=== PATIENT | male | born 1975 | race Caucasian/White ===

== ENCOUNTER 2019-01-29 16:54 | Emergency (ER) | payer BC ==
[~2019-01-29] VITALS: Ht 185.4 cm; Wt 145.1 kg
[~2019-01-29 16:54] MED LIST: BACTRIM DS 8001 TA1 PO; KEFLEX500 MG PO; MOTRIN800 MG PO; NO DAILY MEDS; VICODIN 5/500 505 MG PO
== END 2019-01-29 17:58 | disposition home or self-care (01) ==
LOC: ED 16:54
DX: T15.02XA Foreign body in cornea, left eye, initial encounter (principal); I10 Essential (primary) hypertension; X58.XXXA Exposure to other specified factors, initial encounter; Y93.89 Activity, other specified; Y92.89 Other specified places as the place of occurrence of the external cause; Y99.8 Other external cause status

== ENCOUNTER 2020-09-26 19:29 | Emergency (ER) | payer OTHER ==
[2020-09-26] MEDS ORDERED: HYDROCODONE-AC1 EAC1 PO (20:16)
== END 2020-09-26 20:16 | disposition home or self-care (01) ==
LOC: ED 19:29
DX: T25.221A Burn of second degree of right foot, initial encounter (principal); T25.211A Burn of second degree of right ankle, initial encounter; X10.0XXA Contact with hot drinks, initial encounter; Y93.89 Activity, other specified; Y92.69 Other specified industrial and construction area as the place of occurrence of the external cause; Y99.0 Civilian activity done for income or pay

== ENCOUNTER → 2020-10-05 | Outpatient (CLI) | payer OTHER ==
[~2020-10-05] MED LIST changes: +HYDROCODONE-AC1 EAC1 PO
== END ==
LOC: WOUNDCARE 01:51
PROVIDERS: ATTEND Nurse Practitioner
DX: T25.321A Burn of third degree of right foot, initial encounter (principal); T31.0 Burns involving less than 10% of body surface; Z87.891 Personal history of nicotine dependence; Z72.89 Other problems related to lifestyle; Z79.899 Other long term (current) drug therapy; X10.0XXA Contact with hot drinks, initial encounter; Y93.89 Activity, other specified; Y92.29 Other specified public building as the place of occurrence of the external cause; Y99.0 Civilian activity done for income or pay